=== PATIENT | male | born 1995 | race Caucasian/White ===

== ENCOUNTER 2024-04-04 17:39 | Emergency (ER) | payer OTHER, SELFPAY ==
[2024-04-04 18:25] VITALS: BP 119/74; PULSE 82; RESP 18; TEMP 36.4; O2SAT 95; BMI 47.7
[2024-04-04] MEDS: TET,DIPH,PERTUSS(ACELL),VAC/PF 0.5 ML SYRINGE IM (18:38)
[2024-04-04 19:48] VITALS: BP 128/76; PULSE 67; RESP 18; O2SAT 96
--- NOTE | 2024-04-04 21:40 | ED.ANIMALBIT ---
HPI - Animal Bite General Chief Complaint: Animal Bite Stated Complaint: dog bite on arm Time Seen by Provider: 04/04/24 21:21 Source: patient Mode of arrival: Ambulatory History of Present Illness HPI narrative: Patient healthy 29-year-old male presenting today with dog bite. 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 Patient states the dog has all of its shots up-to-date. He is 1 puncture wound on his forearm. He says that his jacket mostly save him. He does get some tingling and sharp shooting pain his arm. Injury initially happened at 11:00 a.m. he finished his work shift. No issues. Reports his tetanus and immunizations are up-to-date Related Data Previous Rx's Medication Instructions Recorded amoxicillin 875 mg-potassium 1 tab PO BID #20 tabs 04/04/24 clavulanate 125 mg tablet Allergies Allergy/AdvReac Type Severity Reaction Status Date / Time No Known Drug Allergies Allergy Verified 04/04/24 18:24 Patient History Social History Smoking Status: Former smoker Smoking Status: Former smoker tobacco type: vaping Alcohol type: other Exam Initial Vital Signs Initial Vital Signs: Vital Signs Temperature 97.6 F 04/04/24 18:25 Pulse Rate 82 04/04/24 18:25 Respiratory Rate 18 04/04/24 18:25 Blood Pressure 119/74 04/04/24 18:25 Pulse Oximetry 95 04/04/24 18:25 Oxygen Delivery Method Room Air 04/04/24 18:25 GENERAL: Well-appearing, well-nourished and in no acute distress. CARDIOVASCULAR: peripheral pulses in tact, cap refill <2 sec RESPIRATORY: No respiratory distress, speaks in full sentences without difficulty EXTREMITIES: Normal range of motion, no clubbing or edema. Neurovascularly intact NEUROLOGICAL: Cranial nerves II through XII grossly intact. Normal gait and speech. SKIN: Very small puncture wound noted on right forearm that has already healed over Course Orders Ordered: Discontinued Medications Amoxicillin/Clavulanate Potassium (Amoxicillin/Clav 875/125 Mg) 1 tab PO NOW ONE Stop: 04/04/24 21:48 Last Admin: 04/04/24 21:52 Dose: 1 tab Documented By: ALANIS Diphtheria/Tetanus/Acell Pertussis (Tet,Diph,Pertuss(Acell),Vac/Pf 0.5 Ml Syringe) 0.5 ml IM .ONCE ONE Stop: 04/04/24 18:34 Last Admin: 04/04/24 18:38 Dose: 0.5 ml Documented By: AB Vital Signs Vital signs: Vital Signs - 8 hr 04/04/24 18:25 04/04/24 19:48 04/04/24 21:55 Temperature 97.6 F Pulse Rate 82 67 91 H Respiratory Rate 18 18 18 Blood Pressure 119/74 128/76 137/84 Pulse Oximetry 95 96 96 Oxygen Delivery Method Room Air Room Air Room Air MDM - Animal Bite MDM Narrative Medical decision making narrative: Patient 29-year-old male presents today with dog bite to the forearm. He has 1 small puncture wound which is already scabbed over. Given 1st dose of Augmentin here in the ED. Supportive care. Discharge Plan Departure Patient Disposition: Home Clinical Impression: Dog bite Instructions: DI for Dog Bite Activity Restrictions/Additional Instructions: *You have been diagnosed with dog bite *What to do: At this time elevate and ice often monitor for redness and streaking. May lift and use as tolerated *Continue to take medications as directed Augmentin 875 mg twice a day for 10 days *Follow up with your primary care provider in 2-3 days or call [phone] *Return to ER if you should have increasing redness streaking pain or any new, worsening or concerning symptoms Prescriptions: New amoxicillin-pot clavulanate 875-125 mg tablet 1 tab PO BID Qty: 20 0RF Stand Alone Forms: Patient Portal/API/Survey
[2024-04-04] MEDS: AMOXICILLIN/CLAV 875/125 MG 1 TAB PO (21:52)
[2024-04-04 21:55] VITALS: BP 137/84; PULSE 91; RESP 18; O2SAT 96
== END 2024-04-04 21:55 | disposition home or self-care (01) ==
PROVIDERS: Emergency Provider Emergency Medicine
DX: S51.851A Open bite of right forearm, initial encounter (principal); W54.0XXA Bitten by dog, initial encounter; Y93.89 Activity, other specified; Y99.0 Civilian activity done for income or pay; Z23 Encounter for immunization
CPT/HCPCS: 90471; 99283; 99284; 90715